=== PATIENT | male | born 1950 | race Hispanic/Latino ===

== ENCOUNTER 2017-02-20 06:15 | Day surgery (SDC) | payer MEDICARE, OTHER ==
[2017-02-20 07:06] VITALS: BMI 31.7
[2017-02-20] MEDS ORDERED: Lidocaine 1% Inj (20ml) ONE (07:30)
[2017-02-20] MEDS ORDERED: Bupivacaine 0.5% Inj(30mL) ONE (07:30)
[2017-02-20] MEDS ORDERED: Propofol 10 mg/ml Inj (20 ML) ONE (07:58)
[2017-02-20] MEDS ORDERED: Midazolam 2 MG/2 ML VIAL ONE ×2 (07:58→08:04)
--- NOTE | 2017-02-20 09:05 | PCM.SURG1 ---
Surgeon's Initial Post Op Note - Surgeon's Notes Surgeon: Dr. Marr Second Steward: Dr. Bruner Type of Anesthesia: IV Sedation, Local Pre-Operative Diagnosis: melanoma left upper back Operative Findings: see op report Post-Operative Diagnosis: same Operation Performed: wide local re-excision 5x2x1.5 cm of left upper back melanoma w/ advancement flap closure and wide local excision of right upper back skin lesion, 5x2x1.5 cm w/ advancement flap closure Specimen/Specimens Removed: 1. left upper back full thickness skin w/ suture markers: lateral long single stitch and superior short single stitch. 2. Right upper back full thickness skin w/ suture markers: lateral long single stitch and superior short single stitch Estimated Blood Loss: EBL {In ML}: 5 Blood Products Given: N/A Drains Used: No Drains Post-Op Condition: Good Date of Surgery/Procedure: 02/20/17 Time of Surgery/Procedure: 09:06
[2017-02-20] MEDS ORDERED: Lactated Ringer's 1,000 ML IV SCH (09:16)
[2017-02-20 09:49] VITALS: BP 119/65; PULSE 62; RESP 20; TEMP 97.2; O2SAT 95
--- NOTE | 2017-02-20 12:45 | OP ---
PROCEDURE DATE: 02/20/2017 PREOPERATIVE DIAGNOSES: Left upper back melanoma and right upper back abnormal discolored skin lesion. POSTOPERATIVE DIAGNOSES: Left upper back melanoma and right upper back abnormal discolored skin lesion. PROCEDURE PERFORMED: 1. Wide and deep reexcision of the left upper back melanoma site. 2. Wide and deep excision of the right upper back abnormal discolored and irregular skin lesion. 3. Advancement flap closure of both wounds measuring 5 x 2 cm in diameter with layered closure. SURGEON: Dr. Roberto. DIAL MOUNTER: Dr. Bruner. ANESTHESIOLOGIST: Dr. Torres. ANESTHESIA: MAC and local anesthesia. ESTIMATED BLOOD LOSS: Minimal. SPECIMEN: 1. Left upper breast reexcision site of the melanoma. 2. Right upper side abnormal irregular discolored skin lesion. INDICATION: The patient is a 66-year-old male with history of previous excision of the abnormal irregular skin lesion on the left upper back which turned out to be in situ melanoma and the patient was now brought in for reexcision of that lesion as well as for the excision of the adjacent lesion with abnormal discoloration and irregular edges. DESCRIPTION OF PROCEDURE: First, a timeout procedure took place and everybody in the room agreed as to the patient's identity, diagnosis and procedure to be performed. The patient was turned into the prone position and then underwent MAC anesthesia , was prepped and draped in the usual sterile fashion. Next, a local anesthetic was given to the areas of incision after the lesions were marked appropriately. The excision encompasses the entire lesion as well as an additional 1 cm of the normal skin on the left side and about 0.5 cm of normal skin on the right side. The incision was carried through down to subcutaneous fat which was included with the specimen. Once removed, both wounds were copiously irrigated and all the irrigant fluid was suctioned out and bleeding points were cauterized. Now, the flaps were raised in order to reapproximate the wound edges. This was located in the upper back and under significant amount of stretch. The flaps were raised both inferiorly and superiorly for about 4 cm on each side. Once adequate relaxation of the skin was achieved, the wound was closed in layers using 3-0 Vicryl for the deep dermal layer and 4- 0 Monocryl for the subcuticular closure of the skin. The wounds were covered with Dermabond dressing. The patient tolerated the procedure well and there were no complications. The patient was awakened and transferred to recovery room for further observation. Douglas Roberto MD cc: [id number] TT: 02/20/2017 09:38:36 jesse NANCE
== END 2017-02-20 10:15 | disposition home or self-care (01) ==
LOC: SDS 06:15
PROVIDERS: ATTEND General Practice
DX: C43.59 Malignant melanoma of other part of trunk (principal); L82.0 Inflamed seborrheic keratosis; I10 Essential (primary) hypertension
CPT/HCPCS: 14000; 88309; J0690; J2001; J2250; J2704; J3010; J7120 ×2

== ENCOUNTER 2018-09-16 10:24 | Outpatient (CLI) | payer MEDICARE, OTHER | END 2018-09-16 10:25 | disposition home or self-care (01) | LOC: LAB 10:24 ==